=== PATIENT | female | born 1995 | race Caucasian/White ===

== ENCOUNTER 2017-10-16 14:05 | Emergency (ER) | payer OTHER ==
[2017-10-16 14:13] VITALS: BP 115/67; PULSE 82; TEMP 98.7; BMI 28.3
[2017-10-16] MEDS ORDERED: ALBUTEROL SO4 2.5/IPRATROPIUM 0.5 INH SOL 3 ML VIAL.NEB. NEB ONE ×2 (15:14→15:25)
--- NOTE | 2017-10-16 15:20 | PDOC ---
History of Present Illness - General Chief Complaint: Respiratory Stated Complaint: BODYACHES Time Seen by Provider: 10/16/17 14:51 History Source: Patient Exam Limitations: No Limitations - History of Present Illness Timing/Duration: reports: constant, changing over time, getting worse Severity: reports: mild, moderate Associated Symptoms: reports: cough, earache, facial pain, fever/chills, nasal congestion, nasal drainage, sore throat Past History - Travel Traveled outside of the country in the last 30 days: No Close contact w/someone who was outside of country & ill: No - Past Medical History Allergies/Adverse Reactions: Allergies Allergy/AdvReac Type Severity Reaction Status Date / Time No Known Allergies Allergy Verified 10/16/17 14:12 Home Medications: Ambulatory Orders Albuterol Sulfate Inhaler - [Ventolin HFA Inhaler -] 1 - 2 inh PO Q4H #1 inhaler 10/16/17 COPD: No - Suicide/Smoking/Psychosocial Hx Smoking History: Never smoked Review of Systems - Review of Systems Able to Perform ROS?: Yes Is the patient limited [place]an proficient: Yes Constitutional: Yes: Symptoms Reported, See HPI, Fever, Malaise HEENTM: Yes: Symptoms Reported, Nose Congestion, Throat Pain Respiratory: Yes: Symptoms reported, See HPI, Cough. No: Wheezing Musculoskeletal: No: Symptoms Reported All Other Systems: Reviewed and Negative *Physical Exam - Vital Signs Last Vital Signs Temp Pulse Resp BP Pulse Ox 98.7 F 82 18 115/67 99 10/16/17 14:11 10/16/17 14:11 10/16/17 14:11 10/16/17 14:11 10/16/17 14:11 - Physical Exam General Appearance: Yes: Nourished, Appropriately Dressed, Mild Distress HEENT: positive: ED, TMs Normal (congested, landmarks visualized ), Tonsillar Erythema, Rhinorrhea, Other (thick mucous drainage noted in posterior pharynx). negative: Tonsillar Exudate Neck: positive: Lymphadenopathy (R), Lymphadenopathy (L). negative: Tender Respiratory/Chest: positive: Lungs Clear (but dim), Normal Breath Sounds Cardiovascular: positive: Regular Rate Musculoskeletal: positive: Normal Inspection Integumentary: positive: Normal Color, Dry, Warm, Pale Neurologic: positive: insurance verification representative II-XII NML intact, Fully Oriented, Alert, Normal Mood/ Affect Progress Note - Progress Note Progress Note: Rapid strep test negative, we'll treat for upper respiratory infection, probable viral and provide albuterol inhaler as is much clear after DuoNeb treatment. , *DC/Admit/Observation/Transfer Diagnosis at time of Disposition: URI, acute - Discharge Dispostion Disposition: HOME Condition at time of disposition: Stable Decision to Admit order: No - Prescriptions Prescriptions: Albuterol Sulfate Inhaler - [Ventolin HFA Inhaler -] 1 - 2 inh PO Q4H #1 inhaler - Referrals - Patient Instructions Printed Discharge Instructions: DI for Viral Upper Respiratory Infection -- Adult Additional Instructions: Rest, drink lots of fluids: Teas, water, soups, Pedialyte Saltwater gargles Steamy showers/seem to face break up mucus Avoid contact with others until fevers and cough resolved Lots of handwashing and good hygiene Continue [id number] medications for symptomatic relief Tylenol or Motrin for fever and pain Followup with private physician in one to 2 days as needed Return to emergency department for worsened symptoms, fevers, dehydration - Post Discharge Activity Forms/Work/School Notes: Back to Work
== END 2017-10-16 16:28 | disposition home or self-care (01) ==
LOC: JERFT 14:05
PROC: 3E0F7GC Introduction of Other Therapeutic Substance into Respiratory Tract, Via Natural or Artificial Opening (ICD-10-PCS; principal; 2017-10-16)
DX: J06.9 Acute upper respiratory infection, unspecified (principal)
CPT/HCPCS: 87070; 87430; 99281-25; J7620

== ENCOUNTER 2017-10-19 19:58 | Emergency (ER) | payer OTHER ==
[2017-10-19 20:21] VITALS: BP 129/79; PULSE 89; TEMP 98.5; BMI 27.4
--- NOTE | 2017-10-19 20:21 | PDOC ---
Rapid Medical Evaluation Time Seen by Provider: 10/19/17 20:17 Medical Evaluation: Allergies Allergy/AdvReac Type Severity Reaction Status Date / Time No Known Allergies Allergy Verified 10/16/17 14:12 10/19/17 20:18 I have performed a brief in-person evaluation of this patient. The patient presents with a chief complaint of:frontal headache X 1wk, + photophobia, s/p URI 1.5wks ago Pertinent physical exam findings: + frontal sinus tenderness on exam I have ordered the following:none The patient will proceed to the ED for further evaluation. Discharge Disposition - Diagnosis Headache Qualifiers: Headache type: unspecified Headache chronicity pattern: acute headache Intractability: not intractable Qualified Code(s): R51 - Headache - Referrals - Patient Instructions - Post Discharge Activity
--- NOTE | 2017-10-19 21:02 | PDOC ---
History of Present Illness - General Chief Complaint: Migraine Headache Stated Complaint: Migraine Headache Time Seen by Provider: 10/19/17 20:17 - History of Present Illness Initial Comments: 22-year-old female with headache 4 days. She has no comorbidities. She states this is the worst headache of her life. She does have associated fever at home and intermittent chills. 10/19/17 21:01 Past History - Past Medical History Allergies/Adverse Reactions: Allergies Allergy/AdvReac Type Severity Reaction Status Date / Time No Known Allergies Allergy Verified 10/19/17 20:18 Home Medications: Ambulatory Orders NK [No Known Home Medication] 10/19/17 COPD: No - Immunization History Immunization Up to Date: Yes - Suicide/Smoking/Psychosocial Hx Smoking History: Never smoked Have you smoked in the past 12 months: No Information on smoking cessation initiated: No Hx Alcohol Use: No Drug/Substance Use Hx: No Substance Use Type: None Review of Systems - Review of Systems Constitutional: Yes: Chills, Fever Neurological: Yes: Headache All Other Systems: Reviewed and Negative *Physical Exam - Vital Signs Last Vital Signs Temp Pulse Resp BP Pulse Ox 98.5 F 89 16 129/79 100 10/19/17 20:19 10/19/17 20:19 10/19/17 20:19 10/19/17 20:19 10/19/17 20:19 - Physical Exam Comments: HEAD: NC/AT does have positive meningismus EYES: Conjuntiva clear Ears: Canals and TM's normal NOSE: No d/c THROAT: Moist mucous membrances, oral pharanx clear, uvula midline NECK: Supple without adenopathy CARDIAC: S1 S2 LUNGS: CTA Full and Equal breath sounds ABDOMEN: Soft NT ND MS: Full ROM in all joints without edema NEUROLOGIC: No gross sensory or motor deficits, NVID SKIN: Normal color and temperature no lesions or rashes 10/19/17 21:02 Medical Decision Making - Medical Decision Making I'll transfer her to the main ER for meningitis workup. 10/19/17 21:02 *DC/Admit/Observation/Transfer Diagnosis at time of Disposition: Headache Qualifiers: Headache type: unspecified Headache chronicity pattern: acute headache Intractability: not intractable Qualified Code(s): R51 - Headache - Referrals - Patient Instructions - Post Discharge Activity
[2017-10-19 21:37] LABS: BASO % 0.3 % (0-2.0); EOS % 0.7 % (0-4.5); HEMATOCRIT 38.3 % (32.4-45.2); HEMOGLOBIN 12.9 GM/dL (10.7-15.3); LYMPH % 16.7 % (8-40); MCH 28.6 pg (25.7-33.7); MCHC 33.6 g/dl (32.0-36.0); MEAN PLT VOLUME 8.6 fl (7.5-11.1); MONO % 5.2 % (3.8-10.2); NEUT % 77.1 % (42.8-82.8); PLATELET COUNT 207 K/MM3 (134-434); RDW 13.4 % (11.6-15.6); WHITE BLOOD COUNT 9.1 K/mm3 (4.0-10.0)
[2017-10-19 21:39] LABS: HCG,QUALITATIVE URINE Negative
[2017-10-19 21:43] LABS: URINE APPEARANCE CLEAR; URINE BILIRUBIN NEGATIVE (<2.0 mg/dL); URINE COLOR LTYELLOW; URINE GLUCOSE (UA) NEGATIVE (NEGATIVE); URINE KETONE NEGATIVE (NEGATIVE); URINE LEUK ESTERASE NEGATIVE (NEGATIVE); URINE NITRITE NEGATIVE (NEGATIVE); URINE PROTEIN NEGATIVE (NEGATIVE); URINE UROBILINOGEN NEGATIVE mg/dL (0.2-1.0)
[2017-10-19 21:47] LABS: INR 1.03 (0.83-1.09); PROTHROMBIN TIME (PATIENT) 11.6 SEC (9.7-13.0)
[2017-10-19 21:58] LABS: ALBUMIN 3.6 g/dl (3.4-5.0); ANION GAP 10 MMOL/L (8-16); BILIRUBIN,TOTAL 0.2 mg/dL (0.2-1.0); BLOOD UREA NITROGEN 11 mg/dL (7-18); CALCIUM 8.9 mg/dL (8.5-10.1); CHLORIDE 104 mmol/L (98-107); CO2 26 mmol/L (21-32); CREATININE 0.7 mg/dL (0.55-1.02); GLUCOSE,RANDOM 125 mg/dL (74-106); POTASSIUM 4.5 mmol/L (3.5-5.1); SGOT/AST 14 U/L (15-37); SGPT/ALT 21 U/L (12-78); SODIUM 140 mmol/L (136-145); TOT PROT 7.7 g/dl (6.4-8.2)
[2017-10-19 21:59] LABS: ALK PHOS 72 U/L (45-117)
[2017-10-19] MEDS ORDERED: SODIUM CHLORIDE 0.9% 1000 ML INFUS.BAG IV ONE (22:12)
[2017-10-19] MEDS ORDERED: METOCLOPRAMIDE HCL INJECTION 10 MG/2 ML VIAL IVPB ONE (22:12)
[2017-10-19] MEDS ORDERED: KETOROLAC TROMETHAMINE 30 MG/1 ML VIAL IVPUSH ONE (22:12)
[2017-10-19] MEDS ORDERED: METOCLOPRAMIDE HCL INJECTION 10 MG/2 ML VIAL ONE (22:15)
[2017-10-19] MEDS ORDERED: KETOROLAC TROMETHAMINE 30 MG/1 ML VIAL ONE (22:15)
--- NOTE | 2017-10-19 22:22 | PDOC ---
History of Present Illness - General Chief Complaint: Migraine Headache Stated Complaint: Migraine Headache Time Seen by Provider: 10/19/17 20:17 History Source: Patient Exam Limitations: No Limitations - History of Present Illness Initial Comments: 10/19/17 22:22 The patient is a 22F with no PMH who presents to the ER with complaints of fever , headache, and neck stiffness. The patient states that she has had 3 days of constant, worsening, frontal headache which she describes as throbbing and worse when leaning forward. She states that her neck "freezes up" when she leans forward. She admits to fever and chills but denies CP, SOB, myalgias, sore throat, cough. Past History - Past Medical History Allergies/Adverse Reactions: Allergies Allergy/AdvReac Type Severity Reaction Status Date / Time No Known Allergies Allergy Verified 10/19/17 20:18 Home Medications: Ambulatory Orders NK [No Known Home Medication] 10/19/17 COPD: No - Immunization History Immunization Up to Date: Yes - Suicide/Smoking/Psychosocial Hx Smoking History: Never smoked Have you smoked in the past 12 months: No Information on smoking cessation initiated: No Hx Alcohol Use: No Drug/Substance Use Hx: No Substance Use Type: None Review of Systems - Review of Systems Able to Perform ROS?: Yes Comments:: 10/19/17 22:42 GENERAL/CONSTITUTIONAL: Positive for fever and chills. No weakness. HEAD, EYES, EARS, NOSE AND THROAT: No change in vision. No ear pain or discharge. No sore throat. CARDIOVASCULAR: No chest pain, palpitations, or lightheadedness. RESPIRATORY: No cough, wheezing, shortness of breath, or hemoptysis. GASTROINTESTINAL: No nausea, vomiting, diarrhea, constipation, or abdominal pain. GENITOURINARY: No dysuria, frequency, hematuria, or change in urination. MUSCULOSKELETAL: Positive for neck pain. No joint or muscle swelling or pain. SKIN: No rash or lesions. NEUROLOGIC: Positive for headache. No numbness, tingling, focal weakness, loss of consciousness, or change in strength/sensation. ENDOCRINE: No increased thirst. No abnormal weight change. HEMATOLOGIC/LYMPHATIC: No anemia, easy bleeding, or history of blood clots. ALLERGIC/IMMUNOLOGIC: No hives or skin allergy. Is the patient limited Hungarian proficient: No *Physical Exam - Vital Signs Last Vital Signs Temp Pulse Resp BP Pulse Ox 98.5 F 89 16 129/79 100 10/19/17 20:19 10/19/17 20:19 10/19/17 20:19 10/19/17 20:19 10/19/17 20:19 - Physical Exam Comments: 10/19/17 22:43 GENERAL: Well developed, well nourished. Awake and alert. No acute distress. HEENT: Normocephalic, atraumatic. TTP over frontal sinuses Hearing grossly normal. Moist mucous membranes. PERRLA, EOMI. No conjunctival pallor. Sclera are non-icteric. Oropharynx is clear. NECK: Limited ROM. No JVD. Mild bilateraly cervical lymphadenopathy. CARDIOVASCULAR: Tachycardic with regular rhythm. No murmurs, rubs, or gallops. PULMONARY: No evidence of respiratory distress. Lungs clear to auscultation bilaterally. No wheezing, rales or rhonchi. ABDOMINAL: Soft. Non-tender. Non-distended. No rebound or guarding. GENITOURINARY: No CVA tenderness bilaterally. MUSCULOSKELETAL: Normal range of motion at all joints. No bony deformities or tenderness. EXTREMITIES: No cyanosis. No clubbing. No edema. No calf tenderness or swelling. SKIN: Warm and dry. Normal capillary refill. No rashes. No jaundice. NEUROLOGICAL: Alert, awake, appropriate. Cranial nerves 2-12 intact. Normal speech. Gait is normal without ataxia. PSYCHIATRIC: Cooperative. Good eye contact. Appropriate mood and affect. ED Treatment Course - LABORATORY CBC & Chemistry Diagram: 10/19/17 21:00 10/19/17 21:00 - ADDITIONAL ORDERS Additional order review: Laboratory Results 10/19/17 10/19/17 10/19/17 21:00 21:00 21:00 PT with INR 11.60 INR 1.03 Sodium 140 Potassium 4.5 Chloride 104 Carbon Dioxide 26 Anion Gap 10 BUN 11 Creatinine 0.7 Creat Clearance w eGFR > 60 Random Glucose 125 H Calcium 8.9 Total Bilirubin 0.2 AST 14 L ALT 21 Alkaline Phosphatase 72 Total Protein 7.7 Albumin 3.6 Urine Color Ltyellow Urine Appearance Clear Urine pH 6.0 Ur Specific Donaldson 1.011 Urine Protein Negative Urine Glucose (UA) Negative Urine Ketones Negative Urine Blood Negative Urine Nitrite Negative Urine Bilirubin Negative Urine Urobilinogen Negative Ur Leukocyte Esterase Negative Urine HCG, Qual Negative 10/19/17 21:00 RBC 4.50 MCV 85.0 MCHC 33.6 RDW 13.4 MPV 8.6 Neutrophils % 77.1 Lymphocytes % 16.7 Monocytes % 5.2 Eosinophils % 0.7 Basophils % 0.3 - Medications Given in the ED: ED Medications Discontinued Medications Generic Name Dose Route Start Last Admin Trade Name Jazmyne PRN Reason Stop Dose Admin Ketorolac Tromethamine 30 mg 10/19/17 22:12 10/19/17 22:21 Toradol Injection - IVPUSH 10/19/17 22:13 30 mg ONCE ONE Administration Metoclopramide HCl 10 mg 10/19/17 22:12 10/19/17 22:21 Reglan Injection - IVPB 10/19/17 22:13 10 mg ONCE ONE Administration Sodium Chloride 1,000 ml 10/19/17 22:12 10/19/17 22:20 Normal Saline - IV 10/19/17 22:13 1,000 ml ONCE ONE Administration Medical Decision Making - Medical Decision Making 10/19/17 22:46 The patient was brought from fast track by HANNA Vazquez for concern of meningitic signs. The patient is a 22F with no PMH who presents with neck stiffness, fever, and headache. I appreciated limited ROM but she was able to flex with active ROM. Will treat with fluids, toradol, and reglan and reassess. Will likely need LP if she does not feel better after medicating. \\ 10/19/17 23:27 Pt had full ROM and states that she "wants to leave". Pt has no meningitic signs currently. She ate a full meal. Will d/c home with PCP f/u. Likely viral syndrome. *DC/Admit/Observation/Transfer Diagnosis at time of Disposition: Viral syndrome Headache Qualifiers: Headache type: unspecified Headache chronicity pattern: acute headache Intractability: not intractable Qualified Code(s): R51 - Headache - Discharge Dispostion Disposition: HOME Condition at time of disposition: Stable Decision to Admit order: No - Referrals - Patient Instructions Printed Discharge Instructions: Viral Meningitis Additional Instructions: Please follow up with your primary care physician in 1-3 days. Please return to the ER if you have any signs or symptoms of worsening headache , neck stiffness, chest pain, shortness of breath, uncontrollable fever, chills , nausea, vomiting, numbness, tingling, or weakness in any part of your body, changes in vision, or slurred speech. Please return to the ER if symptoms persist, worsen, or new symptoms arise. - Post Discharge Activity
--- NOTE | 2017-10-19 23:19 | PDOC ---
Attending Attestation - Resident Resident Name: Jayce Stallworth - ED Attending Attestation I have performed the following: I have examined & evaluated the patient, The case was reviewed & discussed with the resident, I agree w/resident's findings & plan, Exceptions are as noted - HPI HPI: 10/19/17 23:18 22 YO female has been having body aches,sore throat ,headache and reports some fevers for 3 days - Physicial Exam PE: 10/19/17 23:19 wnwd 22 yo female head ncat throat no exudates eyes claus eomi neck no bruits lungs cta b/l cvs [id number] abd flat ext no e/c/c neuro axox3,motor strength 5/5,b/l skin no rahs,no petichia - Medical Decision Making 10/19/17 23:21 labs reviewed,unremarkab;e pt's received IVF,toradol and now wants ot leave,her symptoms resolved
== END 2017-10-19 23:37 | disposition home or self-care (01) ==
LOC: JER 19:58 → JERFT 19:58 → JER 23:37
PROC: 3E0337Z Introduction of Electrolytic and Water Balance Substance into Peripheral Vein, Percutaneous Approach (ICD-10-PCS; principal; 2017-10-19)
PROC: 3E0333Z Introduction of Anti-inflammatory into Peripheral Vein, Percutaneous Approach (ICD-10-PCS; 2017-10-19)
PROC: 3E033GC Introduction of Other Therapeutic Substance into Peripheral Vein, Percutaneous Approach (ICD-10-PCS; 2017-10-19)
DX: R51 Headache (principal)
CPT/HCPCS: 36415; 80053; 81003; 84703; 85025; 85610; 87040; 87086; 99282-25; J7030